=== PATIENT | female | born 1960 | race African-American/Black ===

== ENCOUNTER 2017-08-28 08:41 | Outpatient (CLI) | payer OTHER | END 2017-08-28 19:27 | disposition home or self-care (01) | LOC: MAMMO 08:41 | DX: Z12.31 Encounter for screening mammogram for malignant neoplasm of breast (principal) ==

== ENCOUNTER 2022-12-17 17:36 | Emergency (ER) | payer OTHER ==
[~2022-12-17] VITALS: Ht 149.9 cm; Wt 74.8 kg
== END 2022-12-17 19:15 | disposition home or self-care (01) ==
LOC: ED 17:36
PROC: 0HQFXZZ Repair Right Hand Skin, External Approach (ICD-10-PCS; principal; 2022-12-17)
DX: S61.216A Laceration without foreign body of right little finger without damage to nail, initial encounter (principal); W26.0XXA Contact with knife, initial encounter; Y92.89 Other specified places as the place of occurrence of the external cause
CPT/HCPCS: 99282; J2001